=== PATIENT | male | born 1945 | race Hispanic/Latino ===

== ENCOUNTER 2022-02-12 09:16 | Emergency (ER) | payer OTHER ==
[~2022-02-12] VITALS: Ht 162.6 cm; Wt 86.2 kg
[~2022-02-12 09:16] MED LIST: ALBU18HF7 IH; AMLO-257 PO; FINA5TAB41 PO; LOSA1TAB42 PO; METF-446 PO; METO-408 PO; PRAV10TA39 PO; TAMS-1 PO
[2022-02-12] MEDS ORDERED: ACETAMINOPHEN 500 MG TABLET PO ONE (10:00)
[2022-02-12] MEDS ORDERED: MORPHINE 2 MG SYG IVP ONE (10:00)
[2022-02-12 10:03] LABS: BASOPHILS % (AUTO) 0.6 % (0.0-5.0); EOSINOPHILS % (AUTO) 3.7 % (0.0-8.0); HEMATOCRIT 40.5 % (42-54); LYMPHOCYTES % (AUTO) 12.7 % (21.0-51.0); MEAN CORPUSCULAR HEMOGLOBIN 27.1 pg (27.0-33.0); MEAN CORPUSCULAR HGB CONC 32.8 g/dL (32.0-36.0); MEAN CORPUSCULAR VOLUME 82.5 fL (79-99); MONOCYTES % (AUTO) 5.8 % (3.0-13.0); NEUTROPHILS % (AUTO) 76.9 % (40.0-77.0); PLATELET COUNT (AUTO) 166 K/uL (130-400); RED BLOOD CELL COUNT(AUTO) 4.91 MIL/uL (4.50-6.20); RED CELL DISTRIBUTION WIDTH 15.1 % (11.0-15.5); WHITE BLOOD COUNT (AUTO) 7.1 K/uL (4.8-10.8)
[2022-02-12 10:14] LABS: INR 1.11 (0.85-1.15)
[2022-02-12 10:15] LABS: PARTIAL THROMBOPLASTIN TIME 27.1 SEC (26.3-35.5)
[2022-02-12 10:21] LABS: POTASSIUM 3.8 mmol/L (3.5-5.1)
[2022-02-12 10:29] LABS: ALBUMIN 3.5 g/dL (3.5-5.0); BILIRUBIN,TOTAL 0.6 mg/dL (0.2-1.0); TOTAL PROTEIN, SERUM 6.8 g/dL (6.0-8.3)
[2022-02-12] MEDS ORDERED: IOHEXOL 350 MG/ML 100ML INFUS..BTL IV ONE (10:44)
[2022-02-12] MEDS ORDERED: IOHEXOL-350 50ML VIAL IV ONE (10:44)
[2022-02-12 10:49] VITALS: BP 153/79
[2022-02-12] MEDS ORDERED: ACET-2079 PO (13:12)
== END 2022-02-12 13:26 | disposition home or self-care (01) ==
LOC: EDH 09:16
DX: E11.51 Type 2 diabetes mellitus with diabetic peripheral angiopathy without gangrene (principal); E78.00 Pure hypercholesterolemia, unspecified; I10 Essential (primary) hypertension; I25.10 Atherosclerotic heart disease of native coronary artery without angina pectoris; Z79.84 Long term (current) use of oral hypoglycemic drugs; Z95.1 Presence of aortocoronary bypass graft
CPT/HCPCS: 36415; 75635; 80053; 84484; 85025; 85610; 85730; 93925; 96374; 99285; Q9967 ×2

== ENCOUNTER 2022-02-16 14:42 | Inpatient (IN) | payer OTHER ==
[~2022-02-16] VITALS: Ht 160 cm; Wt 77.2 kg
[~2022-02-16 14:42] MED LIST changes: +ACET-2079 PO
[2022-02-16 16:01] LABS: BASOPHILS % (AUTO) 0.6 % (0.0-5.0); EOSINOPHILS % (AUTO) 2.7 % (0.0-8.0); HEMATOCRIT 37.6 % (42-54); LYMPHOCYTES % (AUTO) 6.5 % (21.0-51.0); MEAN CORPUSCULAR HEMOGLOBIN 27.6 pg (27.0-33.0); MEAN CORPUSCULAR HGB CONC 32.2 g/dL (32.0-36.0); MEAN CORPUSCULAR VOLUME 85.8 fL (79-99); NEUTROPHILS % (AUTO) 83.8 % (40.0-77.0); PLATELET COUNT (AUTO) 165 K/uL (130-400); RED BLOOD CELL COUNT(AUTO) 4.38 MIL/uL (4.50-6.20); RED CELL DISTRIBUTION WIDTH 15.5 % (11.0-15.5); WHITE BLOOD COUNT (AUTO) 7.9 K/uL (4.8-10.8)
[2022-02-16 16:11] LABS: POTASSIUM 4.5 mmol/L (3.5-5.1)
[2022-02-16 16:12] LABS: INR 1.07 (0.85-1.15); PROTHROMBIN TIME 11.6 SEC (9.6-11.6)
[2022-02-16 16:14] LABS: PARTIAL THROMBOPLASTIN TIME 27.3 SEC (26.3-35.5)
[2022-02-16 16:16] LABS: ALBUMIN 3.1 g/dL (3.5-5.0); BILIRUBIN,TOTAL 0.5 mg/dL (0.2-1.0); TOTAL PROTEIN, SERUM 6.5 g/dL (6.0-8.3)
[2022-02-16] MEDS: 0.9%NACL 1000ML 1,000 ML IV SCH (16:30)
[2022-02-16] MEDS ORDERED: ONDANSETRON 4MG INJ IV PRN (17:30)
[2022-02-16] MEDS ORDERED: HEPARIN 25,000 UNITS/250ML D5W 250 ML IV SCH (17:30)
[2022-02-16] MEDS ORDERED: DIPHENHYDRAMINE HCL 25 MG CAPSULE PO PRN (17:30)
[2022-02-16] MEDS ORDERED: GUAIFENESIN-DM 200/20 MG 10 ML PO PRN (17:30)
[2022-02-16] MEDS ORDERED: LACTULOSE 20 GM/30 ML UDCUP PO PRN (17:30)
[2022-02-16] MEDS ORDERED: NITROGLYCERIN 0.4 MG SL TAB SL PRN (17:30)
[2022-02-16] MEDS ORDERED: MAG/ALUM/SIMETH 30 ML UDCUP PO PRN (17:30)
[2022-02-16] MEDS ORDERED: ACETAMINOPHEN 325 MG TAB PO PRN (17:30)
[2022-02-16] MEDS ORDERED: DEXTROSE 50%-WATER 50 ML DISP.SYRIN IV PRN (18:00)
[2022-02-16] MEDS ORDERED: GLUCAGON 1MG KIT 1 MG ML IM PRN (18:00)
[2022-02-16 18:55] LABS: HEMOGLOBIN A1C 6.8 % (4.0-6.0)
[2022-02-16] MEDS: FAMOTIDINE 20MG VIAL IV SCH (20:37)
[2022-02-16] MEDS ORDERED: PRAV40TA3 PO (20:47)
[2022-02-16] MEDS ORDERED: METF-446 PO (20:47)
[2022-02-16] MEDS ORDERED: ACET-2079 PO (20:47)
[2022-02-16] MEDS ORDERED: CLOP75TA32 PO (20:47)
[2022-02-16] MEDS ORDERED: IBUP-2071 PO (20:47)
[2022-02-16] MEDS ORDERED: OMEGA XL PO (20:47)
[2022-02-16] MEDS ORDERED: ASPI-1197 PO (20:47)
[2022-02-16] MEDS ORDERED: VITAMIN B12 PO (20:47)
[2022-02-16] MEDS ORDERED: ALBU8.5H8 IH (20:47)
[2022-02-16] MEDS ORDERED: BICA50TA7 PO (20:47)
[2022-02-16] MEDS ORDERED: INSULIN HUMULIN R 100 UNIT/ML 3ML SQ SCH (21:00)
[2022-02-16 21:10] VITALS: BP 145/72
[2022-02-17] VITALS (14 sets, daily range): BP systolic 107–152; BP diastolic 50–74
[2022-02-17 00:21] LABS: INR 1.07 (0.85-1.15); PROTHROMBIN TIME 11.6 SEC (9.6-11.6)
[2022-02-17 00:22] LABS: PARTIAL THROMBOPLASTIN TIME 28.2 SEC (26.3-35.5)
[2022-02-17] MEDS ORDERED: HEPARIN 5,000 UNIT VIAL ONE (00:41)
[2022-02-17] MEDS: 0.9%NACL 1000ML 1,000 ML IV SCH (05:57)
[2022-02-17] MEDS: ACETAMINOPHEN WITH CODEINE 1 TAB TAB PO PRN ×2 (06:18→16:05)
[2022-02-17] MEDS: FAMOTIDINE 20MG VIAL IV SCH ×2 (08:52→20:57)
[2022-02-17] MEDS ORDERED: BIVALIRUDIN 250 MG/VIAL IV ONE (09:38)
[2022-02-17] MEDS ORDERED: IODIXANOL 320 MG/ML 100 ML VIAL ONE (09:39)
[2022-02-17] MEDS ORDERED: NITROGLYCERIN 50MG VIAL ONE (09:39)
[2022-02-17] MEDS ORDERED: HEPARIN 10,000 UNIT/10ML (1,000 UNIT/ML) VIAL ONE (09:39)
[2022-02-17] MEDS ORDERED: NICARDIPINE 25MG INJ IV ONE (09:39)
[2022-02-17] MEDS ORDERED: MIDAZOLAM HCL 1 MG/ML 2ML VIAL ONE (09:40)
[2022-02-17] MEDS ORDERED: LIDOCAINE HCL 400MG/20ML VIAL ONE (09:40)
[2022-02-17] MEDS ORDERED: FENTANYL CITRATE PF 50 MCG/1 ML 2ML VIAL ONE (09:40)
[2022-02-17] MEDS ORDERED: CLOPIDOGREL 300MG TAB ONE (10:41)
[2022-02-17] MEDS ORDERED: HYDRALAZINE 20MG/ML VIAL ONE ×2 (10:50→11:44)
[2022-02-17] MEDS ORDERED: 0.9%NACL 1000ML 1,000 ML IV SCH (12:30)
[2022-02-17] MEDS ORDERED: ATORVASTATIN 40 MG TABLET PO SCH (21:00)
[2022-02-18] MEDS: ACETAMINOPHEN WITH CODEINE 1 TAB TAB PO PRN (02:23)
[2022-02-18 03:22] VITALS: BP 117/51
[2022-02-18 04:10] LABS: BASOPHILS % (AUTO) 0.4 % (0.0-5.0); EOSINOPHILS % (AUTO) 3.3 % (0.0-8.0); HEMATOCRIT 32.2 % (42-54); LYMPHOCYTES % (AUTO) 9.3 % (21.0-51.0); MEAN CORPUSCULAR HEMOGLOBIN 27.3 pg (27.0-33.0); MEAN CORPUSCULAR VOLUME 85.4 fL (79-99); NEUTROPHILS % (AUTO) 78.6 % (40.0-77.0); PLATELET COUNT (AUTO) 128 K/uL (130-400); RED BLOOD CELL COUNT(AUTO) 3.77 MIL/uL (4.50-6.20); RED CELL DISTRIBUTION WIDTH 15.8 % (11.0-15.5); WHITE BLOOD COUNT (AUTO) 5.4 K/uL (4.8-10.8)
[2022-02-18 04:27] LABS: ALBUMIN 2.4 g/dL (3.5-5.0); BILIRUBIN,TOTAL 0.4 mg/dL (0.2-1.0); CREATININE 0.9 mg/dL (0.5-1.5); POTASSIUM 3.8 mmol/L (3.5-5.1); TOTAL PROTEIN, SERUM 5.1 g/dL (6.0-8.3)
[2022-02-18 07:20] VITALS: BP 133/61
[2022-02-18] MEDS: FAMOTIDINE 20MG VIAL IV SCH (08:19)
[2022-02-18] MEDS ORDERED: TAMSULOSIN HCL 0.4 MG CAP.ER.24H PO SCH (09:00)
[2022-02-18] MEDS ORDERED: LOSA25TA41 PO (09:00)
[2022-02-18] MEDS ORDERED: CLOPIDOGREL 75MG TAB PO SCH (09:00)
[2022-02-18] MEDS ORDERED: ASPIRIN 81MG CHEW TAB PO SCH (09:00)
[2022-02-18] MEDS ORDERED: AMLODIPINE 5 MG TAB PO SCH (09:00)
[2022-02-18] MEDS ORDERED: METOPROLOL SUCCINATE 50 MG TAB.SR.24H PO SCH (09:00)
[2022-02-18 10:45] VITALS: BP 127/48
== END 2022-02-18 13:00 | disposition home or self-care (01) | DRG 272 ==
LOC: EDH 14:42 → EDHIP 17:07 → 4BH 21:10
PROVIDERS: ADMIT Internal Medicine; ATTEND Internal Medicine
PROC: B41DYZZ Fluoroscopy of Aorta and Bilateral Lower Extremity Arteries using Other Contrast (ICD-10-PCS; principal; 2022-02-17)
PROC: 047A3ZZ Dilation of Left Renal Artery, Percutaneous Approach (ICD-10-PCS; 2022-02-17)
PROC: 047U3ZZ Dilation of Left Peroneal Artery, Percutaneous Approach (ICD-10-PCS; 2022-02-17)
PROC: 04CY3ZZ Extirpation of Matter from Lower Artery, Percutaneous Approach (ICD-10-PCS; 2022-02-17)
DX: E11.51 Type 2 diabetes mellitus with diabetic peripheral angiopathy without gangrene (principal); E78.5 Hyperlipidemia, unspecified; I10 Essential (primary) hypertension; I25.10 Atherosclerotic heart disease of native coronary artery without angina pectoris; R32 Unspecified urinary incontinence; E78.00 Pure hypercholesterolemia, unspecified; I25.2 Old myocardial infarction; Z86.73 Personal history of transient ischemic attack (TIA), and cerebral infarction without residual deficits; Z85.46 Personal history of malignant neoplasm of prostate; Z82.49 Family history of ischemic heart disease and other diseases of the circulatory system; Z83.3 Family history of diabetes mellitus; Z82.5 Family history of asthma and other chronic lower respiratory diseases; Z95.1 Presence of aortocoronary bypass graft; Z79.02 Long term (current) use of antithrombotics/antiplatelets; Z79.82 Long term (current) use of aspirin; Z80.3 Family history of malignant neoplasm of breast
CPT/HCPCS: 36415; 37229; 71045; 75710; 75716; 75774; 80053; 82948; 83036; 84484; 85025; 85347; 85610; 85730; 93005; 99156; 99157; C1769; C1893; C1894; G0378; J0360; J0583; J1644; J2250; J2405; J3010; J3490; J7030; Q9967

== ENCOUNTER → 2022-06-09 | Outpatient (CLI) | payer OTHER ==
[~2022-06-09] MED LIST changes: -ACET-2079 PO; -ALBU18HF7 IH; -AMLO-257 PO; +ASPI-1443 PO; +BICA50TA7 PO; +CLOP75TA32 PO; -FINA5TAB41 PO; +GABA300C PO; +LISI40TA9 PO; -LOSA1TAB42 PO; -METO-408 PO; -PRAV10TA39 PO; +PRAV40TA3 PO; -TAMS-1 PO; +omega xl PO; +vitamin b12 PO
== END | disposition home or self-care (01) ==
LOC: WHH 10:33
PROVIDERS: ATTEND Podiatrist Foot & Ankle Surgery
DX: E11.621 Type 2 diabetes mellitus with foot ulcer (principal); I70.244 Atherosclerosis of native arteries of left leg with ulceration of heel and midfoot; L97.421 Non-pressure chronic ulcer of left heel and midfoot limited to breakdown of skin; L89.520 Pressure ulcer of left ankle, unstageable; B35.1 Tinea unguium; E11.51 Type 2 diabetes mellitus with diabetic peripheral angiopathy without gangrene; I25.810 Atherosclerosis of coronary artery bypass graft(s) without angina pectoris; I10 Essential (primary) hypertension; E78.00 Pure hypercholesterolemia, unspecified; E78.5 Hyperlipidemia, unspecified; Z95.1 Presence of aortocoronary bypass graft
CPT/HCPCS: G0463; A4450

== ENCOUNTER → 2022-08-11 | Outpatient (CLI) | payer OTHER ==
[~2022-08-11] MED LIST changes: +LIDOCAINE HCL 4% LTA SOL 4 ML VIAL TP ONE
== END | disposition home or self-care (01) ==
LOC: WHH 10:09
PROVIDERS: ATTEND Podiatrist Foot & Ankle Surgery
DX: E11.621 Type 2 diabetes mellitus with foot ulcer (principal); I70.244 Atherosclerosis of native arteries of left leg with ulceration of heel and midfoot; L97.422 Non-pressure chronic ulcer of left heel and midfoot with fat layer exposed; L89.523 Pressure ulcer of left ankle, stage 3; B35.1 Tinea unguium; E11.51 Type 2 diabetes mellitus with diabetic peripheral angiopathy without gangrene; I25.810 Atherosclerosis of coronary artery bypass graft(s) without angina pectoris; I10 Essential (primary) hypertension; E78.5 Hyperlipidemia, unspecified; E78.00 Pure hypercholesterolemia, unspecified; Z95.1 Presence of aortocoronary bypass graft; Z79.899 Other long term (current) drug therapy
CPT/HCPCS: 11042; A6209; A4450

== ENCOUNTER → 2022-08-25 | Outpatient (CLI) | payer OTHER | END | disposition home or self-care (01) | LOC: WHH 10:05 | PROVIDERS: ATTEND Podiatrist Foot & Ankle Surgery | DX: E11.621 Type 2 diabetes mellitus with foot ulcer (principal); I70.244 Atherosclerosis of native arteries of left leg with ulceration of heel and midfoot; L97.422 Non-pressure chronic ulcer of left heel and midfoot with fat layer exposed; L89.523 Pressure ulcer of left ankle, stage 3; B35.1 Tinea unguium; E11.51 Type 2 diabetes mellitus with diabetic peripheral angiopathy without gangrene; I25.810 Atherosclerosis of coronary artery bypass graft(s) without angina pectoris; I10 Essential (primary) hypertension; E78.5 Hyperlipidemia, unspecified; E78.00 Pure hypercholesterolemia, unspecified; Z95.1 Presence of aortocoronary bypass graft; Z79.899 Other long term (current) drug therapy | CPT/HCPCS: 11042; A6209 ==

== ENCOUNTER → 2022-09-08 | Outpatient (CLI) | payer OTHER | END | disposition home or self-care (01) | LOC: WHH 09:23 | PROVIDERS: ATTEND Podiatrist Foot & Ankle Surgery | DX: L89.523 Pressure ulcer of left ankle, stage 3 (principal); E11.51 Type 2 diabetes mellitus with diabetic peripheral angiopathy without gangrene; B35.1 Tinea unguium; I25.810 Atherosclerosis of coronary artery bypass graft(s) without angina pectoris; I10 Essential (primary) hypertension; E78.5 Hyperlipidemia, unspecified; E78.00 Pure hypercholesterolemia, unspecified; Z95.1 Presence of aortocoronary bypass graft; Z79.899 Other long term (current) drug therapy | CPT/HCPCS: 97597; A6209; A4450 ==

== ENCOUNTER → 2022-09-22 | Outpatient (CLI) | payer OTHER | END | disposition home or self-care (01) | LOC: WHH 09:34 | PROVIDERS: ATTEND Podiatrist Foot & Ankle Surgery | DX: L89.523 Pressure ulcer of left ankle, stage 3 (principal); E11.51 Type 2 diabetes mellitus with diabetic peripheral angiopathy without gangrene; B35.1 Tinea unguium; I25.810 Atherosclerosis of coronary artery bypass graft(s) without angina pectoris; I10 Essential (primary) hypertension; E78.5 Hyperlipidemia, unspecified; E78.00 Pure hypercholesterolemia, unspecified; Z95.1 Presence of aortocoronary bypass graft; Z79.899 Other long term (current) drug therapy | CPT/HCPCS: 11042; A6209 ==

== ENCOUNTER → 2022-10-20 | Outpatient (CLI) | payer OTHER | END | disposition home or self-care (01) | LOC: WHH 10:22 | PROVIDERS: ATTEND Podiatrist Foot & Ankle Surgery | DX: L89.523 Pressure ulcer of left ankle, stage 3 (principal); E11.621 Type 2 diabetes mellitus with foot ulcer; L97.521 Non-pressure chronic ulcer of other part of left foot limited to breakdown of skin; E11.51 Type 2 diabetes mellitus with diabetic peripheral angiopathy without gangrene; B35.1 Tinea unguium; I25.810 Atherosclerosis of coronary artery bypass graft(s) without angina pectoris; I10 Essential (primary) hypertension; E78.5 Hyperlipidemia, unspecified; E78.00 Pure hypercholesterolemia, unspecified; Z95.1 Presence of aortocoronary bypass graft; Z79.899 Other long term (current) drug therapy | CPT/HCPCS: G0463; A4649 ==

== ENCOUNTER → 2022-11-03 | Outpatient (CLI) | payer OTHER | END | disposition home or self-care (01) | LOC: WHH 09:31 | PROVIDERS: ATTEND Podiatrist Foot & Ankle Surgery | DX: B35.1 Tinea unguium (principal); L89.523 Pressure ulcer of left ankle, stage 3; L30.9 Dermatitis, unspecified; E11.621 Type 2 diabetes mellitus with foot ulcer; L97.521 Non-pressure chronic ulcer of other part of left foot limited to breakdown of skin; E11.51 Type 2 diabetes mellitus with diabetic peripheral angiopathy without gangrene; I25.810 Atherosclerosis of coronary artery bypass graft(s) without angina pectoris; I10 Essential (primary) hypertension; R60.0 Localized edema; L60.2 Onychogryphosis; E78.5 Hyperlipidemia, unspecified; E78.00 Pure hypercholesterolemia, unspecified; Z95.1 Presence of aortocoronary bypass graft; Z79.899 Other long term (current) drug therapy | CPT/HCPCS: 11721; A4649; A4450 ==

== ENCOUNTER → 2022-11-24 | Outpatient (CLI) | payer OTHER ==
[~2022-11-24] MED LIST changes: -LIDOCAINE HCL 4% LTA SOL 4 ML VIAL TP ONE
== END ==
LOC: WHH 09:41
PROVIDERS: ATTEND Podiatrist Foot & Ankle Surgery
DX: L89.523 Pressure ulcer of left ankle, stage 3 (principal); L30.9 Dermatitis, unspecified; E11.621 Type 2 diabetes mellitus with foot ulcer; L97.521 Non-pressure chronic ulcer of other part of left foot limited to breakdown of skin; E11.51 Type 2 diabetes mellitus with diabetic peripheral angiopathy without gangrene; I25.810 Atherosclerosis of coronary artery bypass graft(s) without angina pectoris; I10 Essential (primary) hypertension; R60.0 Localized edema; L60.2 Onychogryphosis; E78.5 Hyperlipidemia, unspecified; E78.00 Pure hypercholesterolemia, unspecified; Z95.1 Presence of aortocoronary bypass graft; Z79.899 Other long term (current) drug therapy
CPT/HCPCS: G0463

== ENCOUNTER → 2024-03-05 | Outpatient (CLI) | payer OTHER ==
[2024-03-05 12:21] LABS: BASOPHILS # (AUTO) 0.05 K/uL (0.00-0.20); BASOPHILS % (AUTO) 0.7 % (0.0-5.0); EOSINOPHILS # (AUTO) 0.28 K/uL (0.00-0.70); EOSINOPHILS % (AUTO) 3.7 % (0.0-8.0); HEMATOCRIT 39.8 % (42-54); IMMATURE GRANULOCYTE ABSOLUTE 0.02 K/uL (0-1); LYMPHOCYTES # (AUTO) 1.1 K/uL (1.0-4.8); MEAN CORPUSCULAR HGB CONC 32.9 g/dL (32.0-36.0); MEAN CORPUSCULAR VOLUME 88.1 fL (79-99); MONOCYTES # (AUTO) 0.5 K/uL (0.1-1.0); MONOCYTES % (AUTO) 6.4 % (3.0-13.0); NEUTROPHILS # (AUTO) 5.7 K/uL (1.8-7.7); NEUTROPHILS % (AUTO) 74.9 % (40.0-77.0); PLATELET COUNT (AUTO) 130 K/uL (130-400); RED BLOOD CELL COUNT(AUTO) 4.52 MIL/uL (4.50-6.20); WHITE BLOOD COUNT (AUTO) 7.6 K/uL (4.8-10.8)
[2024-03-05 12:31] LABS: ALBUMIN 3.6 g/dL (3.5-5.0); BILIRUBIN,TOTAL 0.5 mg/dL (0.2-1.0); CREATININE 1.1 mg/dL (0.5-1.3); POTASSIUM 4.7 mmol/L (3.5-5.1); TOTAL PROTEIN, SERUM 7.1 g/dL (6.0-8.3)
== END | disposition home or self-care (01) ==
LOC: LAB 08:38
PROVIDERS: ATTEND Internal Medicine Cardiovascular Disease
DX: I73.9 Peripheral vascular disease, unspecified (principal); E11.9 Type 2 diabetes mellitus without complications
CPT/HCPCS: 36415; 80053; 80061; 85025

== ENCOUNTER 2024-11-13 20:43 | Emergency (ER) | payer OTHER ==
[~2024-11-13] VITALS: Ht 167.6 cm; Wt 88.5 kg
[2024-11-13] MEDS: ketOROlac 60 MG VIAL (30MG/ML) IM ONE (21:28)
--- NOTE | 2024-11-13 22:00 | HMCIMG ---
CT LUMBAR SPINE W/O CONTRAST HISTORY: fall, pain TECHNIQUE: CT LUMBAR SPINE W/O CONTRAST. Coronal and sagittal reformats were obtained. CT was performed with one or more of the following dose reduction techniques: Automated exposure control, adjustment of the mA and/or kV according to the patient's size, or use of the iterative reconstruction technique. FINDINGS: Evaluation of the discs and cord is limited with CT. Lytic lesions involving the majority of L5 vertebral body as well as patchy sclerosis in the right pedicle concerning for metastatic disease. Multilevel degenerative disease with disc space and osteophytes. Facet hypertrophy seen at L3-L4, L4-5 and L5-S1. Nonspecific straightening of curvature likely positional. Atherosclerotic changes of the aorta are seen. IMPRESSION: Lytic lesions involving the majority of L5 vertebral body as well as patchy sclerosis in the right pedicle concerning for metastatic disease. Multilevel degenerative disease with disc space and osteophytes. Facet hypertrophy seen at L3-L4, L4-5 and L5-S1. Lytic lesion versus compression deformity of the inferior endplate of L5.
--- NOTE | 2024-11-13 22:07 | ERN ---
ED Note History of Present Illness Stated Complaint: LOWER BACK PAIN Chief Complaint: Back Pain or Injury Time Seen by MD: 20:50 Time Seen by Midlevel: 20:50 Dictation: The patient is an 79-year-old male with a history of CAD, hypertension, hyperlipidemia, CABG, history of prostate cancer who presents to the emergency department with complaints of lower back pain. Patient reports he has been having this pain for years but reports a fall on Tuesday where he landed on his buttocks. Patient denies any head strike, LOC, nausea or vomiting. Denies any urinary or fecal incontinence. Denies any neck pain, headache, upper back or chest pain, abdominal pain, upper extremity pain. Patient reports he has an appointment with Dr. Segovia tomorrow for evaluation of his lower legs due to history of pain and problems with the his circulation. Allergies: Coded Allergies: No Known Drug Allergies (Verified Allergy, Unknown, 04/23/20) Home Meds Reported Medications Gabapentin (Neurontin) 300 Mg Capsule, 300 MG PO TID, CAP 05/20/22 Metformin HCl (Metformin HCl) 1,000 Mg Tablet, 1000 MG PO AM, TAB 05/20/22 [omega xl] No Conflict Check, 2 TAB PO DAILY 04/06/22 [vitamin b12] No Conflict Check, 1000 MCG PO DAILY 04/06/22 Aspirin (Aspirin EC) 81 Mg Tablet.dr, 81 MG PO DAILY, TAB 04/06/22 Clopidogrel Bisulfate (Clopidogrel) 75 Mg Tablet, 75 MG PO DAILY, TAB 04/06/22 Bicalutamide (Bicalutamide) 50 Mg Tablet, 50 MG PO DAILY, TAB 04/06/22 Lisinopril (Lisinopril) 40 Mg Tablet, 40 MG PO DAILY, TAB 04/06/22 Pravastatin Sodium (Pravastatin Sodium) 40 Mg Tablet, 40 MG PO DAILY, TAB 02/16/22 Past Medical History Past Medical History: Cancer, CVA, Diabetes-Type II, High Cholesterol, Heart Disease, Hypertension, [place] Additional Past Medical Hx: PVD Surgical History: CABG, Other Surgical History Other: OPEN HEART Social History: Negative, Lives with family RN Note Reviewed/Agreed w/PFSH: Yes Review of System Dictation Constitutional: Negative for fever,chills, and weight loss Eyes: Negative for injury, pain,redness, and discharge ENT: Negative for injury,pain or swelling Cardiovascular: Negative for chest pain, palpitations, and edema Respiratory: Negative for shortness of breath, cough, and wheezing, Abdomen/GI: Negative for abdominal pain, nausea, vomiting, diarrhea, and constipation Back: positive for low back pain : Negative for injury, bleeding and discharge MS/Extremity: Negative for injury and deformity Skin: Negative for rash, and discoloration Neuro: Negative for headache, weakness, numbness, tingling, and seizure Psych: Negative for suicide ideation, homicidal ideation, and hallucinations Initial Vital Sign VS Vital Signs Date Time Temp Pulse Resp B/P (MAP) Pulse Ox O2 Delivery O2 Flow Rate FiO2 11/13/24 20:50 97.3 85 18 133/92 96 Room Air 0 11/13/24 22:56 21 Physical Exam Dictation Vital Signs reviewed General Appearance: Alert, oriented x 3, no acute distress, well developed, nourished. Head and Face: non-traumatic. Eyes: PERRL, pink conjunctivas, eyelid no trauma, anterior chamber with arcus senilis. Ears: Pinnas intact and no signs of trauma or erythema ear canals clear and no discharge TM no erythema Nose: No discharge, no bleeding. Oropharynx: Mouth normal, tongue pink. pharynx clear,no erythema, tonsils no exudates, no abscesses noted, mucous membrane moist Neck: Supple, non-tender, no thyromegaly, no masses, no JVD, no bruits Breast:Deferred Chest:No tenderness, no crepitus, no paradoxical movement, no retractions Lungs:Clear, well-ventilated, symmetric, no rales, no wheezing, no rhonchi, no stridor, good breath sounds bilaterally Heart: Regular rate, regular rhythm, no murmur, no gallops Vascular: no peripheral edema, dorsalis pedis 1+ bilaterally, cap refill3 s econds Abdomen: Soft, positive bowel sounds, nondistended, no guarding, nontender, no rebound, no masses no hepatomegaly, no splenomegaly, no Campos's sign, no hernias. Rectal: Deferred Genital: Deferred Neurological: Normal speech, motor function intact, sensory function intact Musculoskeletal: Neck nontender, full range of motion, low back tenderness, no open wounds, full range of motion, Extremities: nontender, full range of motion Skin: Color pink, dry, no turgor, no rash, no lacerations, no abrasions, no contusions. Lymphatic: Deferred Results (Laboratory/Radiology) Laboratory/Radiology Laboratory Tests Test 11/13/24 22:54 Urine Color LIGHT-YELLOW (YELLOW) Urine Appearance CLEAR (CLEAR) Urine pH 6.5 (5.0-8.0) Urine Specific [place] 1.018 (1.001-1.031) Urine Protein 10 mg/dL (NEGATIVE) H Urine Glucose (UA) 70 mg/dL (NEGATIVE) H Urine Ketones NEGATIVE mg/dL (NEGATIVE) Urine Occult Blood NEGATIVE (NEGATIVE) Urine Nitrate NEGATIVE (NEGATIVE) Urine Bilirubin NEGATIVE mg/dL (NEGATIVE) Urine Urobilinogen 0.2 mg/dL (0.2-1.0) Urine Leukocyte Esterase NEGATIVE Roland/uL REASON: fall, pain ORDERING PHYSICIAN: RC VILLALOBOS MANAGER TECHNICAL TRAINING PROCEDURE: L SPIN WO - CT LUMBAR SPINE W/O CONTRAST CT LUMBAR SPINE W/O CONTRAST HISTORY: fall, pain TECHNIQUE: CT LUMBAR SPINE W/O CONTRAST. Coronal and sagittal reformats were obtained. CT was performed with one or more of the following dose reduction techniques: Automated exposure control, adjustment of the mA and/or kV according to the patient's size, or use of the iterative reconstruction technique. FINDINGS: Evaluation of the discs and cord is limited with CT. Lytic lesions involving the majority of L5 vertebral body as well as patchy sclerosis in the right pedicle concerning for metastatic disease. Multilevel degenerative disease with disc space and osteophytes. Facet hypertrophy seen at L3-L4, L4-5 and L5-S1. Nonspecific straightening of curvature likely positional. Atherosclerotic changes of the aorta are seen. IMPRESSION: Lytic lesions involving the majority of L5 vertebral body as well as patchy sclerosis in the right pedicle concerning for metastatic disease. Multilevel degenerative disease with disc space and osteophytes. Facet hypertrophy seen at L3-L4, L4-5 and L5-S1. Lytic lesion versus compression deformity of the inferior endplate of L5. Labs Reviewed?: Yes ED Course ED Course Orders Procedure Category Date Status Time Ct Lumbar Spine W/O CT 11/13/24 Resulted Contrast 21:19 Ketorolac 60mg/2ml PHA 11/13/24 Complete (Toradol 60mg/2ml) 21:30 Urinalysis Profile LAB 11/13/24 In Process 22:41 Current Medications Medications (Trade) Dose Ordered Sig/Tyrell Route PRN Reason Start Time Stop Time Status Last Admin Dose Admin Ketorolac Tromethamine (toRADol 60MG/ 2ML) 30 mg ONCE ONCE IM 11/13/24 21:30 11/13/24 21:31 DC 11/13/24 21:28 Vital Signs Date Time Temp Pulse Resp B/P (MAP) Pulse Ox O2 Delivery O2 Flow Rate FiO2 11/13/24 22:56 67 17 189/82 96 Room Air* 0 21 11/13/24 20:50 97.3 85 18 133/92 96 Room Air 0 Medical Decision Making MDM The patient is an 79-year-old male with a history of CAD, hypertension, hyperlipidemia, CABG, history of prostate cancer who presents to the emergency department with complaints of lower back pain. Patient reports he has been having this pain for years but reports a fall on Tuesday where he landed on his buttocks. Patient denies any head strike, LOC, nausea or vomiting. Denies any urinary or fecal incontinence. Denies any neck pain, headache, upper back or chest pain, abdominal pain, upper extremity pain. Patient reports he has an appointment with Dr. Segovia tomorrow for evaluation of his lower legs due to history of pain and problems with the his circulation. Urinalysis with no leukocyte esterase, no nitrites. CT CT lumbar showed lytic lesions involving the majority of L5 vertebrae as well as patchy sclerosis in the right pedicle concerning for metastatic disease. Patient does have a history of prostate cancer and is being evaluated by Oncology. Per patient's patient has an oncology follow up in January. Discussed imaging results with family and patient and instructed them to schedule an earlier appointment to follow up with Oncology for results. Patient reports pain improvement. Patient able to move lower extremities, no urinary or fecal incontinence. Patient reports he ambulates with a cane at home. Case discussed with Dr. Fabian who agrees patient can discharged and follow up with the Oncology Differential diagnosis: Lumbar fracture, back contusion, back strain Need for hospitalization: Patient does not meet criteria for hospitalization. There are no social concerns with this patient. DX & DISP Disposition: Discharge Departure Impression: Primary Impression: Lesion of lumbar spine Additional Impressions: Chronic back pain, Back contusion, Fall Condition: Stable Additional Instructions: Please follow up with your oncologist as soon as possible. If symptoms worsen, you develop fecal or urinary incontinence, lower extremity paralysis please return to ER. FOLLOW-UP WITH PRIMARY CARE PROVIDER IN 1 TO 2 DAYS. TAKE MEDICATIONS DIRECTED HERE IN THE EMERGENCY ROOM. OKAY TO CONTINUE HOME MEDICATIONS UNLESS OTHERWISE DISCUSSED DURING YOUR VISIT IN THE EMERGENCY ROOM TODAY. RETURN TO YOUR NEAREST EMERGENCY ROOM IF SYMPTOMS WORSEN OR IF THERE IS NO IMPROVEMENT. CALL 911 IF YOU NEED IMMEDIATE ASSISTANCE. TAKE TYLENOL OR MOTRIN [id number] NEEDED AND IF NO CONTRAINDICATIONS ARE PRESENT. INCREASE ORAL HYDRATION. A WOUND CULTURE OR URINE CULTURE WAS ORDERED HERE IN THE EMERGENCY ROOM DEPARTMENT PLEASE FOLLOW-UP WITH PRIMARY CARE PROVIDER AND ADVISE THEM TO GET REPEAT PORTS FROM OUR FACILITY. IF YOU HAD ANY ADAM WRAP/SPLINTS THAT WERE APPLIED HERE, PLEASE DO NOT REMOVE THEM UNTIL YOU SEE YOUR PRIMARY CARE OR SPECIALTY. Referrals: KIESHA GOMEZ MD (PCP) Time of Disposition: 23:23 I have reviewed the case, and I agree with, Diagnosis and Plan RC VILLALOBOSP Nov 13, 2024 22:07
[2024-11-13 23:05] LABS: APPEARANCE,URINE CLEAR (CLEAR); BILIRUBIN,URINE NEGATIVE (NEGATIVE); COLOR,URINE LIGHT-YELLOW (YELLOW); GLUCOSE, URINE (UA) 70 mg/dL (NEGATIVE); KETONES,URINE NEGATIVE (NEGATIVE); LEUKOCYTE ESTERASE ,URINE NEGATIVE Leu/uL (NEGATIVE); NITRATE,URINE NEGATIVE (NEGATIVE); OCCULT BLOOD,URINE NEGATIVE (NEGATIVE); PH,URINE 6.5 (5.0-8.0); PROTEIN,URINE 10 mg/dL (NEGATIVE); UROBILINOGEN,URINE 0.2 mg/dL (0.2-1.0)
[2024-11-13 23:08] LABS: ADD UA MICROSCOPIC YES
[2024-11-13 23:19] LABS: MUCUS,URINE RARE LPF (None Seen)
[2024-11-13 23:46] VITALS: BP 165/71; PULSE 82; RESP 16; TEMP 98.3; O2SAT 96
== END 2024-11-13 23:47 | disposition home or self-care (01) ==
LOC: EDH 20:43
DX: S30.0XXA Contusion of lower back and pelvis, initial encounter (principal); L98.9 Disorder of the skin and subcutaneous tissue, unspecified; G89.29 Other chronic pain; M54.50 Low back pain, unspecified; E11.51 Type 2 diabetes mellitus with diabetic peripheral angiopathy without gangrene; E78.00 Pure hypercholesterolemia, unspecified; I10 Essential (primary) hypertension; Z79.02 Long term (current) use of antithrombotics/antiplatelets; Z79.82 Long term (current) use of aspirin; Z79.899 Other long term (current) drug therapy; Z86.73 Personal history of transient ischemic attack (TIA), and cerebral infarction without residual deficits; Z95.1 Presence of aortocoronary bypass graft; W18.39XA Other fall on same level, initial encounter; Y93.89 Activity, other specified; Y92.89 Other specified places as the place of occurrence of the external cause; Y99.8 Other external cause status
CPT/HCPCS: 99285; 72131; 81001; 96372; J1885